=== PATIENT | female | born 1990 | race Caucasian/White ===

== ENCOUNTER → 2023-07-06 07:07 | Outpatient (REF) | payer OTHER, SELFPAY | LOC: PNTC 07:07 | PROVIDERS: ATTENDING PHYSICIAN Obstetrics & Gynecology | DX: O35.5XX0 Maternal care for (suspected) damage to fetus by drugs, not applicable or unspecified (principal); O34.219 Maternal care for unspecified type scar from previous cesarean delivery; O99.612 Diseases of the digestive system complicating pregnancy, second trimester; O43.219 Placenta accreta, unspecified trimester | CPT/HCPCS: 76805; 93976 ==

== ENCOUNTER → 2023-08-03 16:38 | Outpatient (REF) | payer OTHER, SELFPAY | LOC: PNTC 16:38 | PROVIDERS: ATTENDING PHYSICIAN Obstetrics & Gynecology | DX: O99.612 Diseases of the digestive system complicating pregnancy, second trimester (principal); O35.5XX0 Maternal care for (suspected) damage to fetus by drugs, not applicable or unspecified; O34.219 Maternal care for unspecified type scar from previous cesarean delivery | CPT/HCPCS: 76811; 93976 ==

== ENCOUNTER → 2023-08-24 16:19 | Outpatient (REF) | payer OTHER, SELFPAY | LOC: PNTC 16:19 | PROVIDERS: ATTENDING PHYSICIAN Obstetrics & Gynecology | DX: O35.5XX0 Maternal care for (suspected) damage to fetus by drugs, not applicable or unspecified (principal); O99.612 Diseases of the digestive system complicating pregnancy, second trimester | CPT/HCPCS: 76816 ==

== ENCOUNTER → 2023-09-21 16:46 | Outpatient (REF) | payer OTHER, SELFPAY | LOC: PNTC 16:46 | PROVIDERS: ATTENDING PHYSICIAN Obstetrics & Gynecology | DX: O35.5XX0 Maternal care for (suspected) damage to fetus by drugs, not applicable or unspecified (principal); O99.612 Diseases of the digestive system complicating pregnancy, second trimester; O43.219 Placenta accreta, unspecified trimester | CPT/HCPCS: 76816; 93976 ==

== ENCOUNTER → 2023-10-19 09:25 | Outpatient (REF) | payer OTHER, SELFPAY | LOC: PNTC 09:25 | PROVIDERS: ATTENDING PHYSICIAN Obstetrics & Gynecology | DX: O35.5XX0 Maternal care for (suspected) damage to fetus by drugs, not applicable or unspecified (principal); O99.612 Diseases of the digestive system complicating pregnancy, second trimester | CPT/HCPCS: 76816 ==

== ENCOUNTER → 2023-11-16 17:23 | Outpatient (REF) | payer OTHER, SELFPAY | LOC: PNTC 17:23 | PROVIDERS: ATTENDING PHYSICIAN Obstetrics & Gynecology | DX: O99.210 Obesity complicating pregnancy, unspecified trimester (principal) | CPT/HCPCS: 76816 ==

== ENCOUNTER 2023-12-02 16:47 | Emergency (ER) | payer OTHER, SELFPAY ==
[2023-12-02 16:49] VITALS: BP 126/83
--- NOTE | 2023-12-02 17:27 | ED.GENMED ---
History of Present Illness
General
Chief Complaint: Anal/Rectal Problem
Source: patient
Exam Limitations: none
Time Seen by Provider: 12/02/23 17:18
History of Present Illness
History of Present Illness:
See MDM
Past History
Past History
ED Past Medical History: None
ED Past Surgical History: None
Social History
Tobacco: Non-smoker
Alcohol: None
Phy Exam
Physical Exam
Physical Exam:
See MDM
Course
Orders/Labs/Results
Orders:
Orders
12/02/23 17:26
Lidocaine/Epinephrine/Tetracai [Let Topical Anesthetic Gel] 3 ml TOPICAL NOW STA
12/02/23 18:09
Lidocaine 4% Cream [Lmx 4] 1 applic TOPICAL NOW STA
Vital Signs
Initial and Last Documented VS:
Initial Vital Signs
Temp Pulse Resp BP Pulse Ox
98.4 F 75 18 126/83 99
12/02/23 16:49 12/02/23 16:49 12/02/23 16:49 12/02/23 16:49 12/02/23 16:49
Last Documented Vital Signs
Temp Pulse Resp BP Pulse Ox
98.4 F 75 18 126/83 99
12/02/23 16:49 12/02/23 16:49 12/02/23 16:49 12/02/23 16:49 12/02/23 16:49
MDM/Problems Addressed
Differential Diagnosis Includes:
HPI and MDM Narrative:
33-year-old female presenting with worsening hemorrhoid pain over the past 3 days. She is 38 weeks . She saw her OB today who suggested that the hemorrhoids may need to be excised. She made an appoint with colorectal surgery for tomorrow.
However, the pain got so severe that the patient came to the hospital. She has been using sitz bath's. She denies constipation. The thought is the 38-week baby pressing on the pelvic area
Physical exam
General: Well appearing and non-toxic
HEENT: protecting airway
Neck: appears supple
CV: No evidence of cyanosis
Resp: No accessory muscle use
Abd: Gravid abdomen
Rectal: Multiple enlarged thrombosed hemorrhoids
Extremities: No deformities
Neuro: alert
Psych: Normal affect
Skin: Intact
Problems Addressed including Acute and Chronic Conditions affecting care:
1. Thrombosed hemorrhoids
Acuity: acute
Prognosis: stable
Details: Case discussed with colorectal surgery who is scheduled to see her tomorrow. Based on the picture provided to the colorectal surgeon (verbal consent given by patient), the surgeon recommended lidocaine cream and discharge. He suggested
that he has better equipment in the office to treat the hemorrhoids
Differential Diagnosis (but not limited to): Hemorrhoid, thrombosed hemorrhoid
Drug therapy (if applicable): OTC meds, please see d/c instruction regarding Rx drugs
Amount and/or Complexity of Data Reviewed
Clinical info obtained from: Patient
External data reviewed: N/A
Labs I independently reviewed (but not limited to): N/A
Radiology: N/A
Pulse Ox: not hypoxic
EKG independently reviewed: N/A
Branch Operation Evaluation Manager: N/A
Critical Care: N/A
Risk of Complication:
Social Determinants of health: Good social support
Discussed with other providers: N/A
Escalation of Care includes Admit/Obs: After being observed in the Emergency Department, pt stable for discharge.
Occasional wrong word or 'sound a like' substitutions may have occurred due to the inherent limitations of voice recognition software. Read the chart carefully and recognize, using context, where substitutions have occurred.
*Critical Care Note
Total Time (30-74mins, 75-104mins- exclusive of procedures): Not Applicable
ED Attending Note
-
Portions of this chart may have been created with voice recognition software.� Occasional wrong word or��sound alike� substitutions may have occurred due to the inherent limitations of voice recognition software.
Discharge Plan
Departure
Patient Disposition: Home (Routine Discharge)
Date of Disposition: 12/02/23
Time of Disposition: 18:27
Patient with high blood pressure during this ER visit?: No
Discharge Problem:
External hemorrhoids
Instructions: Hemorrhoids (DC)
Prescriptions:
New
lidocaine 5 % cream
1 applic topical QID PRN (Reason: rectal pain) Qty: 28.35 0RF
No Action
Stelara 90 MG/ML syringe
90 mg SQ .Q8 WEEKS
Formula 1 TAB tablet
1 tab PO DAILY
cholecalciferol (vitamin D3) 2,000 UNITS tablet
2,000 units PO DAILY
acetaminophen 325 mg Tablet
650 mg PO Q4HPRN PRN (Reason: mild pain) Qty: 30 0RF
ibuprofen 600 mg Tablet
600 mg PO Q6HPRN PRN (Reason: cramps) Qty: 30 0RF
Referrals:
Kayli Cope DO [Family Provider] -
Activity Restrictions/Additional Instructions:
Dr. Noe knows you were here today. He suggested using the lidocaine cream up to 4 times a day. He also suggest sitz bath's. Please keep your appointment tomorrow.
Interventions
Interventions:
*Risk Screen - Suicide Last Done: 12/02/23 16:49
*General Assessment Last Done: 12/02/23 16:49
*Neglect/Abuse Screening Last Done: 12/02/23 16:49
*ED COVID-19 Vaccine History Last Done: 12/02/23 16:49
Discharge Date and Time
Print Language: MACANESE
[2023-12-02] MEDS: LET TOPICAL ANESTHETIC GEL 3 ML TOPICAL (17:57)
[2023-12-02] MEDS: LMX 4 1 APPLIC TOPICAL (18:22)
[2023-12-02 18:30] VITALS: BP 113/80
== END 2023-12-02 19:15 | disposition home or self-care (01) ==
LOC: EMR 16:47
PROVIDERS: EMERGENCY PHYSICIAN Student in an Organized Health Care Education/Training Program; FAMILY PHYSICIAN Family Medicine
DX: O22.43 Hemorrhoids in pregnancy, third trimester (principal); Z3A.38 38 weeks gestation of pregnancy
CPT/HCPCS: 99282

== ENCOUNTER 2023-12-08 04:59 | Inpatient (IN) | payer OTHER, SELFPAY ==
[2023-12-08 05:16] VITALS: BMI 28.0
[2023-12-08 05:17] VITALS: BP 118/89
[2023-12-08] MEDS: LR 1000 IV (05:45)
[2023-12-08 05:47] LABS: Hematocrit 34.2 % (37.0-47.0); Hemoglobin 11.8 g/dL (12.0-16.0); Mean Corp Hgb Conc. 34.5 g/dL (33.0-37.0); Mean Corpuscular Hgb 27.8 pg (27.0-31.0); Mean Corpuscular Volume 80.7 fL (81.0-99.0); Mean Platelet Volume 10.9 fL (7.4-10.4); Platelet Count 212 10^3/uL (130-400); Red Blood Cell Count 4.24 10^6/uL (4.20-5.40); Red Cell Dist. Width 13.5 % (11.5-14.5); White Blood Cell Count 12.2 10^3/uL (4.8-10.8)
[2023-12-08] MEDS: TYLENOL 1000 MG PO (06:07)
[2023-12-08] MEDS: BICITRA 30 ML PO (06:07)
[2023-12-08] MEDS: CLEOCIN 50 IV (06:11)
[2023-12-08] MEDS: ZITHROMAX INFUSION 250 IV (06:20)
[2023-12-08] MEDS: GENTAMICIN 58.75 MG IV (06:20)
[2023-12-08] MEDS: MORPHINE SULFATE 2 MG IV (09:56)
[2023-12-08] MEDS: TORADOL 15 MG IV ×2 (13:25→19:55)
[2023-12-08] MEDS: ZOFRAN 4 MG IV (14:37)
[2023-12-09] MEDS: TYLENOL 650 MG PO ×3 (00:11→12:17)
[2023-12-09] MEDS: TORADOL 15 MG IV ×2 (02:41→08:37)
[2023-12-09 05:20] LABS: Hematocrit 26.7 % (37.0-47.0); Hemoglobin 9.2 g/dL (12.0-16.0); Mean Corp Hgb Conc. 34.5 g/dL (33.0-37.0); Mean Corpuscular Hgb 28.9 pg (27.0-31.0); Platelet Count 171 10^3/uL (130-400); Red Blood Cell Count 3.18 10^6/uL (4.20-5.40); Red Cell Dist. Width 13.2 % (11.5-14.5); White Blood Cell Count 11.7 10^3/uL (4.8-10.8)
[2023-12-09] MEDS: PRENATAL PLUS 1 TABLET PO (08:32)
[2023-12-09] MEDS: VITAMIN C 500 MG PO (08:32)
[2023-12-09] MEDS: FEOSOL 325 MG PO (08:32)
[2023-12-09] MEDS: VITAMIN D3 (cholecalciferol) 50 MCG PO (08:32)
[2023-12-09] MEDS: PERCOCET 5/325 1 TABLET PO ×2 (14:18→19:24)
[2023-12-09] MEDS: MOTRIN 600 MG PO ×2 (14:46→20:47)
--- NOTE | 2023-12-09 15:56 | W.PN.ANS.POP ---
Anesthesia Post Operative
- Anesthesia Post Op Note
Vital Signs Stable-See Nursing Note: Yes
Airway Patent: Yes
Adequate Pain Control: Yes
Change in Mental Status: No
Current Postoperative Nausea & Vomiting: No
Anesthesia Complications: No
General Anesthetic Recall: No
Unplanned Admission: No
Post Op Hydration Adequate: Yes
[2023-12-10] MEDS: MOTRIN 600 MG PO ×2 (04:34→10:20)
--- NOTE | 2023-12-10 08:44 | W.DS.TRANS ---
DC Summary - [employer]
-
Discharge Instructions:
Discharge Diagnosis/Procedures section
Instructions:
Stand-Alone Forms: [facility] Delivery
Changes to Home Medications: Yes
Discharge Medications:
DC Medications w/original date entered in [facility]
cholecalciferol (vitamin D3) 50 mcg (2,000 unit) tablet 2,000 units PO DAILY Supplement 04/09/21
prenat.vits,chrissy,pud-goju-znndl ( Formula tablet) 1 tab PO DAILY Supplement 04/09/21
ustekinumab 90 mg/mL subcutaneous syringe (Stelara) 90 mg SQ .Q8 WEEKS PSORIASIS 04/09/21
acetaminophen 325 mg tablet 650 mg (2 x 325 mg) PO Q4HPRN PRN mild pain #0 tabs 12/10/23
ibuprofen 600 mg tablet 600 mg PO Q6HPRN PRN cramps #40 tabs 12/10/23
oxycodone-acetaminophen 5 mg-325 mg tablet 1 tab PO Q4HPRN PRN moderate pain #6 tabs 12/10/23
sennosides 8.6 mg-docusate sodium 50 mg tablet 1 tab PO DAILYPRN PRN constipation #0 tabs 12/10/23
simethicone 80 mg chewable tablet 80 mg PO TIDPRN PRN flatulence #0 tabs 12/10/23
Home Medication Changes
Pending Results: No
Total time spent discharging patient (in min): 20
[2023-12-10] MEDS: VITAMIN D3 (cholecalciferol) 50 MCG PO (09:05)
[2023-12-10] MEDS: SENOKOT-S 1 TABLET PO (09:05)
[2023-12-10] MEDS: PRENATAL PLUS 1 TABLET PO (09:11)
[2023-12-10] MEDS: TYLENOL 650 MG PO ×2 (09:11→12:53)
[2023-12-10 14:44] LABS: Syphilis/T. pallidum Ab Reflex Negative (Negative)
== END 2023-12-10 14:33 | disposition home or self-care (01) | DRG 787 ==
LOC: LDRP 04:59
PROVIDERS: Obstetrics & Gynecology; ADMITTING PHYSICIAN Obstetrics & Gynecology; ATTENDING PHYSICIAN Obstetrics & Gynecology; FAMILY PHYSICIAN Family Medicine
PROC: 10D00Z1 Extraction of Products of Conception, Low, Open Approach (ICD-10-PCS; 2023-12-08)
DX: O34.211 Maternal care for low transverse scar from previous cesarean delivery (principal); K50.90 Crohn's disease, unspecified, without complications; O99.62 Diseases of the digestive system complicating childbirth; O99.824 Streptococcus B carrier state complicating childbirth; O90.81 Anemia of the puerperium; D50.0 Iron deficiency anemia secondary to blood loss (chronic); Z3A.39 39 weeks gestation of pregnancy; Z37.0 Single live birth; Z98.890 Other specified postprocedural states; Z79.620 Long term (current) use of immunosuppressive biologic; Z87.19 Personal history of other diseases of the digestive system; Z88.0 Allergy status to penicillin; Z88.2 Allergy status to sulfonamides
CPT/HCPCS: 36415; 85027; 86780; 86850; 86900; 86901

== ENCOUNTER 2023-12-23 22:53 | Inpatient (IN) | payer OTHER, SELFPAY ==
[2023-12-23 17:22] VITALS: BMI 25.4
[2023-12-23 17:28] VITALS: BP 109/75
--- NOTE | 2023-12-23 17:36 | ED.PDOC.TRB ---
ED Provider Triage
-
Patient seen by provider in Triage?: Seen in Triage
33-year-old female presents for evaluation of persistent left breast discomfort. She delivered a baby 2 weeks ago. She was dealing with mastitis. She has been on Keflex. She has had 11 doses of Keflex. She notes a persistent burning sensation
to the undersurface of the breast. She also notes fever. She is tachycardic at triage. She spoke with her PEEL OVEN TENDER, Alessandra, who recommended she get an ultrasound of the breast to evaluate for abscess. Check labs IV started fluids ordered.
Afebrile at triage however recently had Tylenol.
[2023-12-23] MEDS: NSS 1000 IV (17:47)
[2023-12-23 17:49] LABS: % Basophils 0.2 % (0-2); % Eosinophils 0.3 % (0-6); % Immature Granulocytes 0.8 % (0-0.5); % Lymphocytes 3.8 % (20.5-51.1); % Neutrophils 91.9 % (42.2-75.2); Absolute Basophils 0.1 10^3/uL (0-0.2); Absolute Eosinophils 0.1 10^3/uL (0-0.7); Absolute Immature Granulocytes 0.2 10^3/uL (0-0.05); Absolute Lymphocytes 0.8 10^3/uL (1.2-3.4); Absolute Monocytes 0.6 10^3/uL (0.1-0.6); Absolute Neutrophils 19.5 10^3/uL (1.4-6.5); Hematocrit 37.7 % (37.0-47.0); Mean Corp Hgb Conc. 34.5 g/dL (33.0-37.0); Mean Corpuscular Hgb 27.8 pg (27.0-31.0); Mean Corpuscular Volume 80.7 fL (81.0-99.0); Mean Platelet Volume 9.5 fL (7.4-10.4); Nucleated Red Blood Cells % 0 %; Platelet Count 401 10^3/uL (130-400); Red Blood Cell Count 4.67 10^6/uL (4.20-5.40); Red Cell Dist. Width 13.2 % (11.5-14.5); White Blood Cell Count 21.2 10^3/uL (4.8-10.8)
[2023-12-23 18:07] LABS: ALT (SGPT) 24 U/L (0-35); AST (SGOT) 33 U/L (14-36); Albumin 4.2 g/dl (3.5-5.0); Alkaline Phosphatase 151 U/L (38-126); Blood Urea Nitrogen 18 mg/dl (7-17); Calcium 10.1 mg/dl (8.4-10.2); Carbon Dioxide 24 mmol/L (22-30); Chloride 102 mmol/L (98-107); Glucose 101 mg/dl (70-99); Potassium 3.9 mmol/L (3.5-5.1); Sodium 140 mmol/L (135-145); Total Bilirubin 0.4 mg/dl (0.2-1.3); Total Protein 7.1 g/dl (6.3-8.2); eGFR > 60.00
[2023-12-23 18:30] VITALS: BP 109/76
--- NOTE | 2023-12-23 18:48 | ED.GENMED ---
History of Present Illness
General
Chief Complaint: Skin Problem
Source: patient
Exam Limitations: none
Time Seen by Provider: 12/23/23 18:35
History of Present Illness
History of Present Illness:
This is a 33 year old female that comes in with c/o left breast pain and redness. States that she had a 2 weeks ago. On Wednesday she went to see Dr. Malik as she had a rash on the left breast more at the time. Patient was place on Kelflex
500mg TID. States that she had 11 doses and yesterday she felt some better. Then last night she started at 3am with less expressed from the breast and her breast hurt. States that this AM at 6m she got up and her vision was blurred and she was
sweating. States that know she has burning in the left breast and this is different then her rash from before. States that her breast feels heavy. Then 12noon she took Motrin and this did not help. Then at 1pm her fever was 101 and she took Tylenol.
States that she had chills with the fever, nausea, headache. Denies any chest pain, SOB, abd pain, vomiting, diarrhea, urinary burning.
Past History
Past History
ED Past Medical History: Other (Crohn's, Mastitis)
ED Past Surgical History: None and (X2)
Social History
Tobacco: Non-smoker
Alcohol: None
Personal:
Living: with family
Review of Systems
Review of Systems
All Other Systems: ROS reviewed and negative except as documented in HPI and ROS
Constitutional: Reports fever and chills
EENT: Reports no symptoms
Respiratory: Reports no symptoms; Denies cough or trouble breathing
Cardiac: Reports no symptoms; Denies chest pain
ABD/GI: Reports nausea; Denies abdominal pain, vomiting or diarrhea
: Reports no symptoms; Denies dysuria, frequency or urgency
Musculoskeletal: Reports no symptoms
Skin: Reports other (Left breast pain and redness)
Neurological: Reports dizzy (at 6am when she got up) and headache
Psychiatric: Reports no symptoms
Phy Exam
General Physical Exam
General Presentation: mild distress
General age: appears stated age
General Skin: warm and dry
General Habitus: normal
General Mental: alert
General Hydration: appears well hydrated
ENT Exam
ENT Exam: TM's normal, pharynx normal and neck supple
Eye Exam
Eye Exam: EOMI
Cardiovascular Exam
Cardiovascular Exam: regular rate/rhythm, no edema, no murmur and normal peripheral pulses
Pulmonary Exam
Pulmonary Exam: lungs clear, no respiratory distress, no rales, chest non tender, no crackles, no rhonchi, no wheezing and no cough
Gastrointestinal Exam
Gastrointestinal Exam: normal bowel sounds, non tender, soft, no organomegaly, no pulsatile mass, non distended and surgical scar ( scar clean and dry with steri strips noted)
Musculoskeletal Exam
Musculoskeletal Exam: full ROM and no edema
Skin Exam
Skin Exam: normal color, warm/dry, no petechia and redness (Left breast on the lower aspect from 6pm down from the nipple out to the lateral breast, Nipple is sore and cracked)
Psychiatric Exam
Psychiatric Exam: normal mood/affect
Course
Orders/Labs/Results
Orders:
Orders
12/23/23 Dinner
Regular
At Your Request: Full Participation
12/23/23 17:33
0.9% Sodium Chloride 1000 ml [Nss] 1,000 ml IV BOLUS
US Breast Left Ltd Urgent
Comment:
Reason For Exam: left breast pain, recent mastitis, eval for absces
12/23/23 17:41
Complete Blood Count/With Diff Urgent
Comprehensive Metabolic Panel Urgent
12/23/23 18:51
HYDROmorphone [Dilaudid] 1 mg IV NOW STA
12/23/23 20:55
Lactic Acid Urgent
Urinalysis Reflex To Culture Urgent
Date Specimen was Collected: 12/23/23
Time Specimen was Collected: 20:35
Urine Microscopic Reflex Cult Urgent
Blood Culture Urgent
BENJI Source: Blood/Venous
Specimen Description:
Comment: Please do 2 blood cultures
Wound Culture [Wound/Abscess/Other Culture] Urgent
BENJI Source: Breast
Specimen Description: Left
Date Specimen was Collected: 12/23/23
Time Specimen was Collected: 20:35
Comment: left breast milk
12/23/23 21:43
Acetaminophen [Tylenol] 650 mg PO Q4HPRN PRN
Ibuprofen [Motrin] 600 mg PO Q6HPRN PRN
Vital Signs As Directed
Frequency: q4h
Call for:: fever >101
Blood cultures for temp>: 101 or higher
12/23/23 21:50
Activity As Directed
Activity Level: Out of Bed-Early Mobility
Foot pumps [Venous Foot Pumps] As Directed
Location: Bilateral feet
12/23/23 21:52
DX Deep Vein Thrombosis Video Routine
12/23/23 21:53
Acetaminophen [Tylenol] 1,000 mg PO Q6HPRN PRN
12/23/23 22:00
CeFAZolin 1 GRAM [Ancef] 1 gram in 5 ml IV Q8H
Flush (0.9% Sodium Chloride) [Flush (Nss)] See Dose Instructions IV PER PROTOCOL
Lactated Ringers [Lr] 1,000 ml IV 125 mls/hr
ustekinumab [Stelara] See Dose Instructions SC Q56D
12/23/23 22:18
Tissue Culture with Gram Stain Urgent
BENJI Source: Breast
Specimen Description: Left
Date Specimen was Collected: 12/23/23
Time Specimen was Collected: 22:01
Comment: cellulitis/mastitis left breast
08/29/24 22:29
Admit/Transfer Patient As Directed
Co-Sign Provider:
Level of Care: Inpatient admission
Assign to:: [facility]
Physician / Group: Astrid
Transfer to: [facility]
Diagnosis: left breast cellulitis
Patient Condition: Good
Reason for Hospitalization: cellulitis
Expected length of stay greater than two midnights?: No
ELOS- Estimated Length of Stay in days: 2
I certify the patient meets the requirements for IP care: Yes
PRN Pain Medication Management As Directed
May give lesser potent ordered pain med per pt: Yes
preference::
Protocol:: Medication orders for pain may be administered in a
manner that supports deferring to patient preference
when the pt is:
- Requesting an ordered lesser potent pain medication.
Least to most potent pain medications are defined
as: acetaminophen < NSAID < tramadol < opioids
(morphine, oxycodone, hydromorphone).
- Requesting a lesser dose of the same medication IF
ORDERED.
- Requesting a less intrusive route of administration
if both routes are prescribed by the provider (PO <
IV).
12/24/23 06:00
Complete Blood Count/With Diff IN AM
Comprehensive Metabolic Panel IN AM
12/24/23 08:00
Docusate Sodium [Colace] 100 mg PO DAILY
MULTIPLE VITAMIN w/FE [ Plus] 1 tablet PO DAILY
Abnormal Lab Results
12/23/23 12/23/23
17:41 20:55
WBC 21.2 H 10^3/uL
(4.8-10.8)
MCV 80.7 L fL
(81.0-99.0)
Plt Count 401 H 10^3/uL
(130-400)
Abs Immat Gran (auto) 0.2 H 10^3/uL
(0-0.05)
Absolute Neuts (auto) 19.5 H 10^3/uL
(1.4-6.5)
Absolute Lymphs (auto) 0.8 L 10^3/uL
(1.2-3.4)
Immature Gran % 0.8 H %
(0-0.5)
Neutrophils % 91.9 H %
(42.2-75.2)
Lymphocytes % 3.8 L %
(20.5-51.1)
BUN 18 H mg/dl
(7-17)
Glucose 101 H mg/dl
(70-99)
Alkaline Phosphatase 151 H U/L
(38-126)
Ur Occult Blood Reflex 4+ A
(Negative)
Leukocyte Esterase Rfl Trace A
(Negative)
Urine RBC 11-15 A /HPF
(0-2)
12/23/23 17:41
12/23/23 17:41
Leukocytosis. Slight Dehydration, Glucose nonfasting. ALk phos eevatied.
Vital Signs
Initial and Last Documented VS:
Initial Vital Signs
Temp Pulse Resp BP Pulse Ox
97.7 F 132 18 109/75 96
12/23/23 17:28 12/23/23 17:28 12/23/23 17:28 12/23/23 17:28 12/23/23 17:28
Last Documented Vital Signs
Temp Pulse Resp BP Pulse Ox
99.1 F 136 18 112/79 98
12/23/23 23:32 12/23/23 23:32 12/23/23 23:32 12/23/23 23:32 12/23/23 23:32
MDM/Problems Addressed
Differential Diagnosis Includes:
Breast mastitis,
MDM/Problems Addressed:
This is a 33 year old female that comes in with c/o pain and redness of the left breast. States that the breast feels heavy and painful. Patient saw the SCHOOL BUS OPERATOR on Wednesday as she had a rash on the top of the breast. Patient was given Keflex and she
has had 11 doses. States that this rash went away and know the redness is on the bottom of the breast.
will check labs. Patient also had a Breast US.
Explained to patient that her WBC are every elevated. Will admit patient for IV antibiotics. Message sent to Dr Resendiz to see if she will admit patient.
Spoke with Astrid Lane and she will admit patient. Blood cultures, Lactic acid and Breast milk culture sent.
Chronic conditions affecting care:
NA
Acute Exacerbation and/or Progression of Chronic Illness:
NA
*Radiology
Radiology exam reviewed: radiology read reviewed (Breast US-No discrete fluid collection visualized. )
*Pulse Oximetry
Patient hypoxic: no
*EKG
Interpreted by ED Provider?: NA
Rate: EKG- N/A
*Staff Services Manager Interpretation
Rate: Staff Services Manager- N/A
*Critical Care Note
Total Time (30-74mins, 75-104mins- exclusive of procedures): Not Applicable
ED Attending Note
-
Portions of this chart may have been created with voice recognition software.� Occasional wrong word or��sound alike� substitutions may have occurred due to the inherent limitations of voice recognition software.
Discharge Plan
Departure
Patient Disposition: Admit
Date of Disposition: 12/23/23
Time of Disposition: 21:06
Admit to: Med/Surg
Presentation/result/management discussed w/ accepting MD/DO: Dr Resendiz
Patient with high blood pressure during this ER visit?: No
Condition: Good
Covid-19: Not Applicable
Discharge Problem:
Cellulitis of left breast
Interventions
Interventions:
*Risk Screen - Suicide Last Done: 12/23/23 18:32
*General Assessment Last Done: 12/23/23 18:32
*Neglect/Abuse Screening Last Done: 12/23/23 18:32
*ED COVID-19 Vaccine History Last Done: 12/23/23 18:32
*Nursing Disposition Last Done: 12/23/23 23:08
ED-Skin Assessment Last Done: 12/23/23 18:42
Discharge Date and Time
Discharge Date/Time: 12/23/23 23:09
[2023-12-23 19:00] VITALS: BP 110/83
[2023-12-23] MEDS: DILAUDID 1 MG IV (19:06)
[2023-12-23 21:15] LABS: Lactic Acid 1.1 mmol/L (0.7-2.0); Urine Albumin Negative (Neg - Trace); Urine Bilirubin Negative (Negative); Urine Character Clear (Clear); Urine Color Yellow; Urine Glucose Negative (Negative); Urine Ketone Negative (Negative); Urine Leukocyte Trace (Negative); Urine Nitrite Negative (Negative); Urine Occult Blood 4+ (Negative); Urine Specific Gravity 1.005 (<1.030); Urine Urobilinogen Negative (Neg - 1+)
[2023-12-23 21:27] LABS: Urine White Cell 0-2 /HPF (0-5)
[2023-12-23] MEDS: ANCEF 5 IV (22:19)
[2023-12-23] MEDS: LR 1000 IV (22:30)
[2023-12-23 22:49] VITALS: BP 110/76
[2023-12-23] MEDS: TYLENOL 1000 MG PO (22:51)
[2023-12-23 23:32] VITALS: BP 112/79
[2023-12-24 03:45] VITALS: BP 93/66
[2023-12-24] MEDS: MOTRIN 600 MG PO ×4 (03:53→21:29)
[2023-12-24] MEDS: ANCEF 5 IV ×2 (05:49→13:57)
[2023-12-24] MEDS: TYLENOL 650 MG PO ×2 (06:09→15:11)
[2023-12-24 06:10] LABS: Hematocrit 32.2 % (37.0-47.0); Mean Corp Hgb Conc. 34.2 g/dL (33.0-37.0); Mean Corpuscular Hgb 28.5 pg (27.0-31.0); Mean Corpuscular Volume 83.4 fL (81.0-99.0); Mean Platelet Volume 9.4 fL (7.4-10.4); Platelet Count 338 10^3/uL (130-400); Red Blood Cell Count 3.86 10^6/uL (4.20-5.40); Red Cell Dist. Width 13.2 % (11.5-14.5)
[2023-12-24 06:37] LABS: ALT (SGPT) 17 U/L (0-35); AST (SGOT) 25 U/L (14-36); Albumin 3.2 g/dl (3.5-5.0); Alkaline Phosphatase 118 U/L (38-126); Blood Urea Nitrogen 11 mg/dl (7-17); Calcium 9.5 mg/dl (8.4-10.2); Carbon Dioxide 25 mmol/L (22-30); Chloride 107 mmol/L (98-107); Estimated Creatinine Clearance 104 ml/min; Glucose 99 mg/dl (70-99); Potassium 4.8 mmol/L (3.5-5.1); Sodium 140 mmol/L (135-145); Total Bilirubin 0.7 mg/dl (0.2-1.3); Total Protein 5.7 g/dl (6.3-8.2); eGFR > 60.00
[2023-12-24 06:43] LABS: % Basophils 0.3 % (0-2); % Eosinophils 0.6 % (0-6); % Immature Granulocytes 0.8 % (0-0.5); % Lymphocytes 7.1 % (20.5-51.1); % Monocytes 5.9 % (1.7-9.3); % Neutrophils 85.3 % (42.2-75.2); Absolute Basophils 0.1 10^3/uL (0-0.2); Absolute Eosinophils 0.2 10^3/uL (0-0.7); Absolute Immature Granulocytes 0.2 10^3/uL (0-0.05); Absolute Lymphocytes 2.1 10^3/uL (1.2-3.4); Absolute Monocytes 1.8 10^3/uL (0.1-0.6); Absolute Neutrophils 25.6 10^3/uL (1.4-6.5); Nucleated Red Blood Cells % 0 %
[2023-12-24 08:00] VITALS: BP 107/69
[2023-12-24 08:42] VITALS: BP 107/69
[2023-12-24] MEDS: COLACE 100 MG PO (09:48)
[2023-12-24] MEDS: PRENATAL PLUS PO (09:48)
--- NOTE | 2023-12-24 14:07 | W.PN.OBG.DWH ---
Today's Communication / Plan
-
sx care, ice, pump as nec
ID consult
Assessment/Plan
-
POD#16 ancef dose 3
fever recent mastitis, cellulitis, breast engorgement
US neg
continued elev wbc
Subjective Data
-
seen in office Mon for mastitis L medial upper quadrant. reduced output wed with episode of fever, change in quality of pain, went to er
slight improvement sxs
no fever
breasts engorged
Objective Data
-
Laboratory Results
12/24/23 05:57
12/24/23 05:57
Vital Signs
Temp Pulse Resp BP Pulse Ox
98.9 F 94 14 107/69 98
12/24/23 08:42 12/24/23 08:42 12/24/23 08:42 12/24/23 08:42 12/24/23 03:45
afeb
lungs cl
breasts engorged, erythema L inferior outer quadrant no induration.
cor rrr
abd +bs soft, fundus firm nt
incis c/d/i, no erythema
ext nt
cxs x 3 pending
--- NOTE | 2023-12-24 14:48 | CON.ID ---
Consultation
-
Date/Time Consultation Requested: December 24, 2023 1346
Date/Time Consultation Performed: December 24, 2023 1450
Requesting Provider: Dr. Angeles Casanova
Performing Provider: Dr. Phyllis Butler
Reason for Consultation: Mastitis
Chief Complaint / Past History
Chief Complaint
Left breast pain and redness
History of Present Illness
33-year-old female with history of Crohn's disease on Stelara, recently underwent uncomplicated elective at week 39 gestation on December 08, 2023. She had been pumping for breast milk. No breast-feeding at home. On Wednesday into Wednesday,
December 19, she noted erythema above the left nipple. [facility] cephalexin 500 mg 3 times daily. She started to feel better on Wednesday to Wednesday. However later Wednesday, she had difficulty
pumping the left breast without significant milk output. The left breast also kept leaking milk. She felt pain inferior part of the breast. She then developed erythema. She spiked temperature to 101 yesterday and therefore she came to the ER and
was admitted. White count was 21.2. Blood culture obtained. Left breast milk sent for culture. Also left nipple swab sent for culture. She was started on cefazolin. Today patient reports she still has chills. Current temperature is 100.8. The
breast is still painful. The top part has improved. However the inferior part of the breast remains red and painful.
Past History
Additional Past Medical History:
Crohn's disease on Stelara
x2, last being 12/08/23
Hemorrhoidectomy 11/2023
Allergy History:
amoxicillin Allergy (Mild, Verified 12/23/23 17:28)
Hives
Sulfa (Sulfonamide Antibiotics) Allergy (Mild, Verified 12/23/23 17:28)
Hives
Penicillins Allergy (Verified 12/23/23 17:28)
Hives
Medications Reviewed: Yes
Current Antibiotics:
cefazolin [id number]
Social History
Tobacco: Non-Smoker
Alcohol: None
Drug: None
Personal:
Living: With Family
Employment: Employed (ed special education teacher)
Family History
Family History: Not Pertinent
Review of Systems
Review of Systems
General: Chills
HEENT: Negative Stiff Neck, Sinus Problems, Headache or Pharyngitis
Cardiovascular: Negative Chest Pain or Dyspnea
Respiratory: Negative Dyspnea or Cough
Gasteroenterology: Other (no diarrhea); Negative Nausea or Vomiting
Genital / Urological: Negative Dysuria or Flank Pain
Neurological: Negative Headache or Dizziness
All systems: All other systems were reviewed and were negative
Vital Signs
Temp Pulse Resp BP Pulse Ox
100.8 F 94 14 107/69 98
12/24/23 08:42 12/24/23 08:42 12/24/23 08:42 12/24/23 08:42 12/24/23 03:45
Physical Exam
Physical Exam
Constitutional: No Acute Distress
Eyes: No Conjunctival Hemorrhage and Sclera Anicteric
Cardiovascular: Regular Rate and S1/S2
Pulmonary: Clear
Gastrointestinal: Soft, Non Tender, Non Distended and Normal Bowel Sounds
Genito-Urinary: Negative CVA Tenderness
Extremities: Negative Edema
Neurological: AO x 3
Left breast: + significant erythema entire inferior portion of breast, + warmth; milder erythema superior inner quadrant.
Lab / Diagnostic Study Results
12/24/23 05:57
12/24/23 05:57
Abs Immat Gran (auto) 0.2 10^3/uL (0-0.05) H 12/24/23 05:57
Absolute Neuts (auto) 25.6 10^3/uL (1.4-6.5) H 12/24/23 05:57
Absolute Lymphs (auto) 2.1 10^3/uL (1.2-3.4) 12/24/23 05:57
Absolute Monos (auto) 1.8 10^3/uL (0.1-0.6) H 12/24/23 05:57
Absolute Basos (auto) 0.1 10^3/uL (0-0.2) 12/24/23 05:57
Immature Gran % 0.8 % (0-0.5) H 12/24/23 05:57
Neutrophils % 85.3 % (42.2-75.2) H 12/24/23 05:57
Lymphocytes % 7.1 % (20.5-51.1) L 12/24/23 05:57
Monocytes % 5.9 % (1.7-9.3) 12/24/23 05:57
Eosinophils % 0.6 % (0-6) 12/24/23 05:57
Basophils % 0.3 % (0-2) 12/24/23 05:57
Lactic Acid 1.1 mmol/L (0.7-2.0) 12/23/23 20:55
Ur Squamous Epith Cells 6-10 /LPF (Few) 12/23/23 20:55
Microbiology Results
Micro:
12/23/23 22:18 Wound Culture - Pending
Breast - Left Gram Stain - Preliminary
12/23/23 20:55 Wound Culture - Pending
Breast - Left Gram Stain - Preliminary
12/23/23 20:55 Blood Culture - Pending
Blood/Venous
12/23/23 left breast US: No discrete fluid collection visualized.
Assessment / Plan
# Post- left mastitis
# Leukocytosis - trending up
# Fever
# Crohn's on Stelara
- breast US: no fluid collection
- breast swab gram stain: moderate GPC; cx pending
Breast milk gram stain: no org; cx pending
-Await blood cx
- Start Vancomycin for MRSA coverage.
- DC cefazolin.
- Trend temps, wbc.
- Follow clinically.
--- NOTE | 2023-12-24 15:27 | PHA.VAN.IN ---
Assessment
- Assessment
Renal Function: Appears similar to baseline
Concomitant Antimicrobials: cefazolin
AUC Dosing Plan
- Dosing Variables
Dosing Weight (kg): 63
Dosing CrCl (ml/min): 104
Vd coefficient (L/kg): 0.7
- Empiric Dosing
Initial / Loading Dose: 1250mg - administration pending
Maintenance Regimen: Vanc 1000mg Q12H starting 12/24 599
Estimated AUC (mcg*h/mL): 523
Estimated Peak (mcg*h/mL): 34.2
Estimated Trough (mcg/ml): 12.6
Estimated Half Life (H): 7.6
- Monitoring
No levels ordered at this time: consider levels in next few days
Pharmacokinetics Vancomycin I
- -
Patient Age: 33
Patient Sex: Female
Vancomycin Day #: 1
Indication: Skin And Soft Tissue
Requesting Provider: Dr. Butler
Pertinent Antimicrobial Allergies:
amoxicillin - hives
sulfonamide antibiotics - hives
penicillins - hives
Height / Weight:
Height 5 ft 2 in
Actual Weight 62.9 kg
Pertinent Past Medical History: Post-
- Vital Signs / Lab Results
Temp Pulse Resp BP Pulse Ox
98.9 F 94 14 107/69 98
12/24/23 08:42 12/24/23 08:42 12/24/23 08:42 12/24/23 08:42 12/24/23 03:45
Lab Results - Hematology
12/23/23 12/24/23
17:41 05:57
WBC 21.2 H 30.0 H
Lab Results - Chemistry
12/23/23 12/24/23
17:41 05:57
BUN 18 H 11
Creatinine 0.8 0.6
Estimated Creat Clear 104
Albumin 4.2 3.2 L
12/23/23
20:55
Lactic Acid 1.1
Lab Results - Urine
12/23/23
20:55
Urine Nitrite (Reflex) Negative
Leukocyte Esterase Rfl Trace A
Urine WBC (Reflex) 0-2
Ur Squamous Epith Cells 6-10
Microbiology Results
12/23/23 22:18 Gram Stain - Preliminary
Breast - Left
12/23/23 20:55 Gram Stain - Preliminary
Breast - Left
--- NOTE | 2023-12-24 16:18 | CM ---
Pt admitted with cellulitis of breast
Spoke with pt
Reports she lives with her and 2 children (20 months, 2 weeks) in a 3 story home. 1 step to enter, 12 steps to 2nd fl
Independent - on maternity leave - delivered 2 weeks ago
DME - has breast pump
SNF/HH - denies past hx
Has ride at discharge
PCP - Dr Jose Cope
Pharm - [facility]
CM available to assist with d/c needs
Plan - anticipate home no needs
[2023-12-24] MEDS: VANCOCIN 275 MG IV (16:34)
--- NOTE | 2023-12-24 17:22 | PTCARENOTE ---
Received patient resting in bed, ID physician rounded on patient approx 1530. see MAR for updated med orders. Pts. temp taken @ 1400 was 98.9 and pts temp was taken again @ 1545 was 100.8. Motrin and Tylenol given for temp, temp recheck and was
98.7. Pt resting comfortably at present.
[2023-12-24 19:45] VITALS: BP 102/65
[2023-12-25 00:55] VITALS: BP 92/65
[2023-12-25] MEDS: MOTRIN 600 MG PO ×4 (03:29→21:57)
[2023-12-25 03:30] VITALS: BP 113/79
[2023-12-25] MEDS: VANCOCIN 200 IV (05:29)
[2023-12-25 05:59] LABS: % Basophils 0.4 % (0-2); % Eosinophils 1.7 % (0-6); % Immature Granulocytes 0.9 % (0-0.5); % Lymphocytes 6.3 % (20.5-51.1); % Monocytes 4.5 % (1.7-9.3); % Neutrophils 86.2 % (42.2-75.2); Absolute Basophils 0.1 10^3/uL (0-0.2); Absolute Eosinophils 0.5 10^3/uL (0-0.7); Absolute Immature Granulocytes 0.2 10^3/uL (0-0.05); Absolute Lymphocytes 1.8 10^3/uL (1.2-3.4); Absolute Monocytes 1.3 10^3/uL (0.1-0.6); Absolute Neutrophils 24.3 10^3/uL (1.4-6.5); Hematocrit 31.2 % (37.0-47.0); Hemoglobin 10.5 g/dL (12.0-16.0); Mean Corp Hgb Conc. 33.7 g/dL (33.0-37.0); Mean Corpuscular Hgb 27.5 pg (27.0-31.0); Mean Corpuscular Volume 81.7 fL (81.0-99.0); Mean Platelet Volume 9.6 fL (7.4-10.4); Nucleated Red Blood Cells % 0 %; Platelet Count 341 10^3/uL (130-400); Red Blood Cell Count 3.82 10^6/uL (4.20-5.40); Red Cell Dist. Width 13.5 % (11.5-14.5); White Blood Cell Count 28.1 10^3/uL (4.8-10.8)
--- NOTE | 2023-12-25 06:41 | PTCARENOTE ---
VSS, afebrile throughout shift. Patient reports the ability to sleep tonight, and decreased pain, requesting Motrin every 6 hours for pain in left breast. Left breast remains erythematic, warm to the touch, and firm. Right breast with no signs or
symptoms of infection, just firm. Patient did not feel the need to pump or hand express any breast milk last night to help with discomfort, stating that she will strictly formula feed baby. Vancomycin administered as per order this am. Right AC PIV
remains patent for antibiotics. Will continue to monitor.
[2023-12-25] MEDS: COLACE 100 MG PO (09:23)
[2023-12-25] MEDS: PRENATAL PLUS 1 TABLET PO (09:23)
[2023-12-25 09:45] VITALS: BP 129/92
--- NOTE | 2023-12-25 11:01 | W.PN.ID1 ---
Date of Service
Date of Service: December 25, 2023
Today's Communication
Change abx to cefepime.
Assessment / Plan
# Post- left mastitis
# Leukocytosis - slightly improved
# Fever - improved
# Crohn's on Stelara
- breast US: no fluid collection
- breast swab gram stain: moderate GPC; cx Pseudomonas
Breast milk gram stain: no org; cx Pseudomonas
- Blood cx neg.
- Start cefepime 2g IV q8h pending final cx.
- DC Vancomycin
- Trend temps, wbc.
- Follow clinically.
Chief Complaint
-: Leukocytosis and Cellulitis
Subjective / Review of Systems
No further chills.
Vital Signs / Physical Exam
Vital Signs
Vital Signs
Temp Pulse Resp BP Pulse Ox
98.1 F 107 18 129/92 98
12/25/23 10:09 12/25/23 09:45 12/25/23 09:45 12/25/23 09:45 12/24/23 03:45
Physical Exam
Constitutional: No Acute Distress
Skin: Other
Physical Exam:
Bilateral breasts engorged. Left breast + erythema inferiorly
Objective Data
Lab Data
Lab Results
12/25/23 05:33
12/24/23 05:57
Estimated Creat Clear 104 ml/min 12/24/23 05:57
Lactic Acid 1.1 mmol/L (0.7-2.0) 12/23/23 20:55
Total Bilirubin 0.7 mg/dl (0.2-1.3) 12/24/23 05:57
AST 25 U/L (14-36) 12/24/23 05:57
ALT 17 U/L (0-35) 12/24/23 05:57
Alkaline Phosphatase 118 U/L (38-126) 12/24/23 05:57
Most recent labs reviewed.
Micro Results:
12/23/23 22:18 Wound Culture - Preliminary
Breast - Left Pseudomonas aeruginosa
Gram Stain - Preliminary
12/23/23 20:55 Wound Culture - Preliminary
Breast - Left Pseudomonas aeruginosa
Gram Stain - Preliminary
12/23/23 20:55 Blood Culture - Preliminary
Blood/Venous No Growth in 24 hours- Final report to follow
12/23/23 left breast US: No discrete fluid collection visualized.
[2023-12-25] MEDS: MAXIPIME 2000 MG IV ×2 (11:58→20:13)
[2023-12-25] MEDS: STERILE WATER FOR INJECTION 10 ML IV ×2 (11:58→20:13)
[2023-12-25 15:09] VITALS: BP 119/84
--- NOTE | 2023-12-25 16:15 | W.PN.OBG.DWH ---
Today's Communication / Plan
-
cont IV cefepime
Ice packs
await sensitivities
labs in am.
Assessment/Plan
-
Left breast mastitis/cellulitis-failed outpt therapy
Psuedomonas on cultures- abx changed to cefepime.
Plan to repeat labs in am. Waiting for sensitivities.
Appreciate ID input
ice packs prn
Subjective Data
-
Pt seen earlier today- late entry note.
Feeling a little better.
Objective Data
-
Laboratory Results
12/25/23 05:33
12/24/23 05:57
Vital Signs
Temp Pulse Resp BP Pulse Ox
97.7 F 92 18 119/84 98
12/25/23 15:09 12/25/23 15:09 12/25/23 15:09 12/25/23 15:09 12/24/23 03:45
VSS afeb
Left breast erythema noted, mostly inferior half of breast, engorged, tender. No fluctuation. No palpable mass
[2023-12-25 19:15] VITALS: BP 134/89
[2023-12-25 23:51] VITALS: BP 124/82
[2023-12-26 04:00] VITALS: BP 116/81
[2023-12-26] MEDS: MAXIPIME 2000 MG IV ×2 (04:01→12:35)
[2023-12-26] MEDS: STERILE WATER FOR INJECTION 10 ML IV ×2 (04:02→12:35)
[2023-12-26] MEDS: MOTRIN 600 MG PO (04:38)
[2023-12-26 04:58] LABS: % Basophils 0.5 % (0-2); % Eosinophils 2.7 % (0-6); % Immature Granulocytes 0.8 % (0-0.5); % Lymphocytes 16.4 % (20.5-51.1); % Monocytes 3.5 % (1.7-9.3); % Neutrophils 76.1 % (42.2-75.2); Absolute Basophils 0.1 10^3/uL (0-0.2); Absolute Eosinophils 0.5 10^3/uL (0-0.7); Absolute Immature Granulocytes 0.2 10^3/uL (0-0.05); Absolute Lymphocytes 3.2 10^3/uL (1.2-3.4); Absolute Monocytes 0.7 10^3/uL (0.1-0.6); Hematocrit 32.2 % (37.0-47.0); Hemoglobin 10.7 g/dL (12.0-16.0); Mean Corp Hgb Conc. 33.2 g/dL (33.0-37.0); Mean Corpuscular Hgb 27.8 pg (27.0-31.0); Mean Corpuscular Volume 83.6 fL (81.0-99.0); Mean Platelet Volume 9.9 fL (7.4-10.4); Nucleated Red Blood Cells % 0 %; Platelet Count 364 10^3/uL (130-400); Red Blood Cell Count 3.85 10^6/uL (4.20-5.40); Red Cell Dist. Width 13.2 % (11.5-14.5); White Blood Cell Count 19.7 10^3/uL (4.8-10.8)
[2023-12-26] MEDS: PRENATAL PLUS 1 TABLET PO (07:43)
[2023-12-26] MEDS: COLACE 100 MG PO (07:43)
[2023-12-26 08:37] VITALS: BP 122/82
--- NOTE | 2023-12-26 09:20 | W.PN.OBG.DWH ---
Today's Communication / Plan
-
Await ID in put regarding timing of conversion of Abx to PO and drug preference.
reviewed with patient.
total time today 20 min
Assessment/Plan
-
Left breast mastitis
failed outpt therapy
Culture shows pseudomonas aeruginosa. Final ID and sensitivities are back. Will defer to ID re: timing of changing to PO regimen and drug choice.
WBC decreasing to 19.7 from 28 yesterday. Current regimen working.
Subjective Data
-
Savita is feeling much improved. Denies fever or chills.
Breast less engorged to her and less painful.
Anxious to go home
Objective Data
-
Laboratory Results
12/26/23 04:32
12/24/23 05:57
Vital Signs
Temp Pulse Resp BP Pulse Ox
97.5 F 72 16 122/82 98
12/26/23 08:37 12/26/23 08:37 12/26/23 08:37 12/26/23 08:37 12/24/23 03:45
VSS afeb No elevated Temp since 12/23 @ 1545 (over 40 hrs)
Apperance pleasant female, NAD
left breast : erythema especially lower half of breast but less compared to admission time; mild tenderness lower half breast. No induration, no drainage.
right breast without abnormal appearance.
--- NOTE | 2023-12-26 11:04 | W.PN.ID1 ---
Date of Service
Date of Service: December 26, 2023
Today's Communication
- After noon dose of cefepime 2g IV, dc home on cipro 500mg po bid through 01/01/24.
- Avoid while on cipro and x 2 days after finish abx.
Assessment / Plan
# Post- left mastitis with Pseudomonas - improving
# Leukocytosis - trending down
# Fever - resolved
# Crohn's on Stelara
- breast US: no fluid collection
- breast swab gram stain: moderate GPC; cx Pseudomonas
Breast milk gram stain: no org; cx Pseudomonas
- Blood cx neg.
- After noon dose of cefepime 2g IV, dc home on cipro 500mg po bid through 01/01/24.
- Avoid while on cipro and x 2 days after finish abx.
- Discussed potential adverse effects of cipro including tendinitis/rupture and C. diff.
Chief Complaint
-: Leukocytosis and Cellulitis
Subjective / Review of Systems
Breast significantly improved.
Vital Signs / Physical Exam
Vital Signs
Vital Signs
Temp Pulse Resp BP Pulse Ox
97.5 F 72 16 122/82 98
12/26/23 08:37 12/26/23 08:37 12/26/23 08:37 12/26/23 08:37 12/24/23 03:45
Physical Exam
Constitutional: No Acute Distress
Physical Exam:
Left breast erythema/warmth decreased
Objective Data
Lab Data
Lab Results
12/26/23 04:32
12/24/23 05:57
Estimated Creat Clear 104 ml/min 12/24/23 05:57
Lactic Acid 1.1 mmol/L (0.7-2.0) 12/23/23 20:55
Total Bilirubin 0.7 mg/dl (0.2-1.3) 12/24/23 05:57
AST 25 U/L (14-36) 12/24/23 05:57
ALT 17 U/L (0-35) 12/24/23 05:57
Alkaline Phosphatase 118 U/L (38-126) 12/24/23 05:57
Most recent labs reviewed.
Micro Results:
12/23/23 20:55 Wound Culture - Final
Breast - Left Pseudomonas aeruginosa
Gram Stain - Final
12/23/23 22:18 Wound Culture - Final
Breast - Left Pseudomonas aeruginosa
Gram Stain - Final
12/23/23 20:55 Blood Culture - Preliminary
Blood/Venous No Growth in 48 hours- Final report to follow
12/23/23 left breast US: No discrete fluid collection visualized.
Care Review
Plan reviewed with: Physician (Dr. Bah)
--- NOTE | 2023-12-26 11:53 | W.PN.UPDATE ---
Update Note
Progress Note Update
Dr Butler saw pt. After IV dose cefipime at noon, pt may be discharged to home on cipro 500mg BID x 7 days. Pt has discontinued . Was advised of potential risks with cipro and to avoid BF on cipro during tx and for 2 days after but she is
no longer .
Follow up in office next week. Advised to call if fever, chills, worsening symptoms, increased pain or redness or other concerns.
stable for mo home.
--- NOTE | 2023-12-26 11:59 | W.DS.TRANS ---
DC Summary - Factory Manager
-
Discharge Instructions:
Discharge Diagnosis/Procedures mastitis; failed outpatient therapy
Diet Regular
Activity No strenuous activity
Driving Restrictions As prior to admission
Bathing Restrictions OK to Shower
Instructions:
Stand-Alone Forms:
Changes to Home Medications: Yes
Discharge Medications:
DC Medications w/original date entered in [facility]
ustekinumab 90 mg/mL subcutaneous syringe (Stelara) 90 mg SQ Q8W PSORIASIS 04/09/21
vit no.95-ferrous fumarate 28 mg-folic acid 800 mcg tablet () 1 tab PO DAILY Supplement 12/23/23
acetaminophen 325 mg tablet 650 mg (2 x 325 mg) PO Q6HPRN PRN breast pain or cramps #0 tabs 12/26/23
ciprofloxacin HCl 500 mg tablet (Cipro) 500 mg PO BID #14 tabs 12/26/23
Home Medication Changes
Pending Results: No
Total time spent discharging patient (in min): 25
== END 2023-12-26 13:00 | disposition home or self-care (01) | DRG 776 ==
LOC: LDRP 22:53
PROVIDERS: Clinical Nurse Specialist Family Health; Obstetrics & Gynecology; Physician Assistant; ADMITTING PHYSICIAN Obstetrics & Gynecology; CONSULT PHYSICIAN Internal Medicine Infectious Disease; EMERGENCY PHYSICIAN Emergency Medicine; FAMILY PHYSICIAN Family Medicine; REFERRING PHYSICIAN Obstetrics & Gynecology
DX: O91.23 Nonpurulent mastitis associated with lactation (principal); K50.90 Crohn's disease, unspecified, without complications; B96.5 Pseudomonas (aeruginosa) (mallei) (pseudomallei) as the cause of diseases classified elsewhere
CPT/HCPCS: 76642; 80053; 81003; 81015; 83605; 85025; 87040; 87070; 87077; 87147; 87176; 87186; 87205; 96361; 96374; 99285